=== PATIENT | female | born 2005 | race Caucasian/White ===

== ENCOUNTER 2024-01-23 10:46 | Inpatient (IN) ==
[2024-01-23 11:22] LABS: Hematocrit (blood only) 32.6 % (37.0-47.0); Hemoglobin 10.9 g/dl (12.0-16.0); Mean Corpuscular Hemoglobin 27.9 pg (25.0-34.0); Mean Corpuscular Hgb Conc 33.4 g/dL (32.0-36.0); Mean Corpuscular Volume 83.4 fL (80.0-100.0); Mean Platelet Volume 12.5 fL (9.4-12.4); Platelet Count 215 K/uL (130-400); RDW Coefficient of Variation 12.5 % (11.5-14.5); RDW Standard Deviation 38.1 fL (36.4-46.3); Red Blood Count 3.91 M/uL (4.20-5.40)
--- NOTE | 2024-01-23 11:27 | Emergency Department Note ---
Impression & Plan Acute GI bleeding, Anemia ED Provider Note NAME: BURKE FERNANDEZ AGE: 18 SEX: F : 2005 ARRIVES VIA: Ambulance INFORMANT: Patient, ED PROVIDER(S): George Angeles DO CHIEF COMPLAINT: GI bleeding HPI: The patient is a 18-year-old female who presented to the emergency department for an evaluation of GI bleeding. The patient started noticing abdominal discomfort including nausea and cramping. She started having problems with bloody stool but also had hematemesis. The patient denies having any similar history in the past. She denies having any fever. She denies having any abdominal pain at this time. The patient has no history or family history of inflammatory bowel disease. She presented to the emergency department because of dizziness upon standing and near syncope. ROS: See above HPI for pertinent positives & negatives. A total of 10 systems reviewed and were otherwise negative. PAST MEDICAL HISTORY: See Below PAST SURGICAL HISTORY: See Below FAMILY HISTORY: See Below SOCIAL HISTORY: See Below HOME MEDICATIONS: See Below ALLERGIES: See Below VITALS: See Below PHYSICAL EXAMINATION: GENERAL: Patient is awake alert in no acute distress patient is resting comfortably and showing no signs of anxiety EYES: The conjunctivae are clear. The pupils are round and reactive. EARS, NOSE, MOUTH AND THROAT: The nose is without any evidence of any deformity. NECK: The neck is nontender and supple. RESPIRATORY: Normal respiratory effort is noted there is no evidence of wheezing rhonchi or rales CARDIOVASCULAR: Tachycardic and regular heart sounds were noted to auscultation. There is no definite murmur. GASTROINTESTINAL: The abdomen is soft. Abdomen is nontender. Rectal exam revealed gross blood per rectum. PELVIS: The Pelvis is stable. No tenderness to palpation is noted. BACK: No midline tenderness or or step-off noted range of motion in flexion extension as well as rotation no signs of muscle spasm noted MUSCULOSKELETAL/EXTREMITIES: There is no evidence of gross deformity full range of motion is noted in the hips and shoulders. SKIN: There is no obvious evidence of any rash. There are no petechiae, pallor or cyanosis noted. NEUROLOGIC: Patient is awake alert and oriented x3 MEDICAL DECISION MAKING: The patient is a 18-year-old female who presented to the emergency department for an evaluation of upper GI bleeding. The patient had an episode of blood per rectum but also had hematemesis. The patient had heme positive stool in the emergency department with gross blood. I discussed the patient's laboratory and radiographic studies with her. Given her findings further radiographic studies were obtained including a CT of the abdomen and pelvis. This showed no acute process. The patient was tachycardic upon arrival in the emergency department. She was treated with IV fluids which improved her tachycardia. I discussed the patient's condition with the on-call lime burner. The [facility] was also notified about the patient. They will evaluate the patient in the emergency department. Triage Nursing notes reviewed. Prior medical records reviewed Vital Signs: reviewed and remarkable for tachycardia and hypotension. Differential diagnosis: Diverticulosis, AVM, coagulopathy, colitis, inflammatory bowel disease, malignancy, Madelaine-Medina tear, esophagitis, peptic ulcer disease, variceal bleed, gastritis, epistaxis, fissure, hemorrhoids, as well as other pathologies. ER treatment provided: See below Diagnostics interpreted by me: ECG: EKG was obtained in the emergency department. My interpretation is sinus tachycardia at 120 bpm. There was no ectopy. Nonspecific ST segment abnormalities were noted. No previous tracing was available. Cardiac Monitoring: An order was placed for continuous cardiac monitoring. The monitor shows a rate of 101 bpm with sinus tachycardia. Laboratory studies: As stated above and show below. Imaging studies: See below. Radiographic imaging was reviewed by myself Consultation(s): I discussed this case with Dr. Skinner who is on-call for gastroenterology. The [facility]ist, Dr. Garcia was notified about the patient. Past Med/Surg History Problem List (Updated 01/23/24 @ 15:00 by George Angeles DO) Anemia (Acute) Acute GI bleeding (Acute) Social History Smoking Status: Never smoker Preferred Language: Amharic Feels Safe at Home: Yes Allergies Allergies Allergy/AdvReac Type Severity Reaction Status Date / Time No Known Allergies Allergy Unverified 01/23/24 11:42 Home Meds Home Medications Medication Instructions Recorded Confirmed No Known Home Medications 01/23/24 01/23/24 Results & Data (ED) Vital Signs Vital Signs - 24 hr 01/23/24 10:42 01/23/24 11:05 01/23/24 11:38 Temperature 37.1 C Temperature Source Oral Pulse Rate - Lying 121 H Pulse Rate - Sitting 140 H Pulse Rate - Standing 161 H Pulse Rate 123 H Pulse Rate [Apical] Respiratory Rate 18 Respiratory Effort / Characteristics Non-Labored Spontaneous Respiratory Depth Normal Respiratory Pattern Regular Blood Pressure - Lying 97/59 L Blood Pressure - Sitting 106/71 Blood Pressure- Standing 94/69 L Blood Pressure 105/73 Blood Pressure [Right Arm] Blood Pressure Mean 83 Blood Pressure Mean [Right Arm] Pulse Oximetry 97 98 Oxygen Delivery Method Room Air Room Air Sepsis Recent Fever Within 48 Hours No Sepsis New/Unexplained Change in Mental Status N/A Sepsis Action Taken by Nursing No Action Required 01/23/24 12:00 01/23/24 12:09 01/23/24 14:00 Temperature Temperature Source Pulse Rate - Lying Pulse Rate - Sitting Pulse Rate - Standing Pulse Rate 106 H Pulse Rate [Apical] 107 H 100 H Respiratory Rate 18 18 Respiratory Effort / Characteristics Non-Labored Spontaneous Non-Labored Spontaneous Respiratory Depth Normal Normal Respiratory Pattern Regular Regular Blood Pressure - Lying Blood Pressure - Sitting Blood Pressure- Standing Blood Pressure Blood Pressure [Right Arm] 119/77 97/71 L Blood Pressure Mean Blood Pressure Mean [Right Arm] 91 79 Pulse Oximetry 97 98 Oxygen Delivery Method Room Air Room Air Sepsis Recent Fever Within 48 Hours Sepsis New/Unexplained Change in Mental Status Sepsis Action Taken by [facility] Medications Current Medication List: was personally reviewed by me Laboratory Data Attestation: I reviewed the patient's lab results. 01/23/24 14:36 01/23/24 11:01 Lab Results 01/23/24 01/23/24 01/23/24 Range/Units 11:01 11:31 13:16 WBC 13.00 H (4.8-10.8) K/ul RBC 3.91 L (4.20-5.40) M/uL Hgb 10.9 L (12.0-16.0) g/dl Hct 32.6 L (37.0-47.0) % MCV 83.4 (80.0-100.0) fL MCH 27.9 (25.0-34.0) pg MCHC 33.4 (32.0-36.0) g/dL RDW Std Deviation 38.1 (36.4-46.3) fL RDW Coeff of Miriam 12.5 (11.5-14.5) % Plt Count 215 (130-400) K/uL MPV 12.5 H (9.4-12.4) fL PT 11.1 (9.0-12.0) Seconds INR 1.0 (0.9-1.1) APTT 20 L (21-31) Seconds PTT Ratio 0.7 Sodium 138 (136-145) mmol/L Potassium 4.2 (3.5-5.1) mmol/L Chloride 107 (98-107) mmol/L Carbon Dioxide 22 (21-32) mmol/L Anion Gap 9 (3-11) BUN 28 H (6-23) mg/dl Creatinine 0.57 L (0.6-1.2) mg/dl Est Cr Clr Drug Dosing 149.4 ml/min eGFR 133.34 BUN/Creatinine Ratio 49.1 H (10-20) Glucose 124 H (70-99(Fasting)) mg/dl Calcium 8.7 (8.6-10.3) mg/dl Total Bilirubin 0.5 (0.2-1.0) mg/dl AST 13 (13-39) U/L ALT 8 (7-52) U/L Alkaline Phosphatase 55 (34-104) U/L Troponin I High Sens < 2.3 (0-14) pg/ml Total Protein 6.1 (6.0-8.3) gm/dl Albumin 4.1 (3.4-5.0) gm/dl Globulin 2.0 L (2.5-4.0) gm/dl Albumin/Globulin Ratio 2.0 (0.9-2) HCG, Qual Negative (Negative) Urine Color Yellow Urine Appearance Clear (Clear) Urine pH 7.5 (4.5-7.5) Ur Specific [place] 1.015 (1.000-1.030) Urine Protein Negative (Negative) Urine Glucose (UA) Negative (Negative) Urine Ketones Trace H (Negative) Urine Blood Negative (Negative) Urine Nitrite Negative (Negative) Urine Bilirubin Negative (Negative) Urine Urobilinogen Negative (Negative) Ur Leukocyte Esterase Negative (Negative) POC Stool Occult Blood (Negative) Blood Type O Negative Antibody Screen NEGATIVE 01/23/24 01/23/24 Range/Units 13:23 14:36 WBC (4.8-10.8) K/ul RBC (4.20-5.40) M/uL Hgb 9.8 L (12.0-16.0) g/dl Hct 28.8 L (37.0-47.0) % MCV (80.0-100.0) fL MCH (25.0-34.0) pg MCHC (32.0-36.0) g/dL RDW Std Deviation (36.4-46.3) fL RDW Coeff of Miriam (11.5-14.5) % Plt Count (130-400) K/uL MPV (9.4-12.4) fL PT (9.0-12.0) Seconds INR (0.9-1.1) APTT (21-31) Seconds PTT Ratio Sodium (136-145) mmol/L Potassium (3.5-5.1) mmol/L Chloride (98-107) mmol/L Carbon Dioxide (21-32) mmol/L Anion Gap (3-11) BUN (6-23) mg/dl Creatinine (0.6-1.2) mg/dl Est Cr Clr Drug Dosing ml/min eGFR BUN/Creatinine Ratio (10-20) Glucose (70-99(Fasting)) mg/dl Calcium (8.6-10.3) mg/dl Total Bilirubin (0.2-1.0) mg/dl AST (13-39) U/L ALT (7-52) U/L Alkaline Phosphatase (34-104) U/L Troponin I High Sens (0-14) pg/ml Total Protein (6.0-8.3) gm/dl Albumin (3.4-5.0) gm/dl Globulin (2.5-4.0) gm/dl Albumin/Globulin Ratio (0.9-2) HCG, Qual (Negative) Urine Color Urine Appearance (Clear) Urine pH (4.5-7.5) Ur Specific [place] (1.000-1.030) Urine Protein (Negative) Urine Glucose (UA) (Negative) Urine Ketones (Negative) Urine Blood (Negative) Urine Nitrite (Negative) Urine Bilirubin (Negative) Urine Urobilinogen (Negative) Ur Leukocyte Esterase (Negative) POC Stool Occult Blood Positive A (Negative) Blood Type Antibody Screen Administered Medications Discontinued Medications Sodium Chloride (Nss) 500 mls @ 999 mls/hr IV .Q31M ONE Stop: 01/23/24 11:53 Last Infusion: 01/23/24 12:15 Dose: Infused Documented By: Admin: 01/23/24 11:39 Dose: 999 mls/hr Documented By: KHAI Pantoprazole Sodium 40 mg/ (Syringe) 10 mls @ 5 mls/min IV NOW ONE Stop: 01/23/24 11:24 Last Admin: 01/23/24 11:49 Dose: 5 mls/min Documented By: KHAI Famotidine (Pepcid 20mg Iv Push) 20 mg in 5 mls @ 2.5 mls/min IV NOW STA Stop: 01/23/24 11:24 Last Admin: 01/23/24 11:35 Dose: 2.5 mls/min Documented By: KHAI Ioversol (Optiray 320 100ml) 94 ml IV ONCE ONE Stop: 01/23/24 13:28 Last Admin: 01/23/24 13:27 Dose: 94 ml Documented By: EDEL Ondansetron HCl (Ondansetron Inj 2 Mg/Ml 2 Ml Vial) 4 mg IV NOW STA Stop: 01/23/24 11:28 Last Admin: 01/23/24 11:41 Dose: 4 mg Documented By: KHAI Imaging Data Attestation: I personally reviewed and interpreted this imaging study as follows: My Impression: CT of the abdomen and pelvis was obtained in the emergency department. My interpretation is no free air or signs of bowel obstruction, final report below. Radiologist's Impression: Abdomen/Pelvis CT 01/23/24 11:[address] WITH IV AND ORAL CONTRAST CT DOSE: 734.68 mGy.cm HISTORY: Acute bloody stools with generalized abdominal pain UGIB TECHNIQUE: Multiaxial CT images of the abdomen and pelvis were performed following the IV administration of 94 cc of Optiray and oral contrast. A dose lowering technique was utilized adhering to the principles of ALARA. COMPARISON STUDY: None. FINDINGS: The lung bases are clear. The liver, spleen, gallbladder, pancreas, kidneys, and adrenal glands are within normal limits.. Normal appendix. No bowel wall thickening or obstruction. The pelvic organs are unremarkable with 1.7 cm dominant right ovarian follicle. Bones appear grossly intact. IMPRESSION: Unremarkable CT of the abdomen and pelvis. ACT 112: Negative or not required by law. The above report was generated using voice recognition software. It may contain grammatical, syntax or spelling errors. Electronically signed by: Hernando Benton M.D. 01/23/2024 2:20 PM Discharge Plan Visit Data Chief Complaint: GI Bleed Stated Complaint: GI BLEED ED Provider: George Angeles Discharge Problem: Acute GI bleeding, Anemia Patient Disposition: Being Evaluated by Hospitalist Forms Stand Alone Forms: [employer] [facility] [employer] Prescriptions Prescriptions: No Action No Known Home Medications Referrals Referrals: PCP,NO [Physician] - Discharge Problem: Anemia Qualifiers: Anemia type: unspecified type Qualified Code(s): D64.9 - Anemia, unspecified
[2024-01-23 11:29] LABS: Alanine Aminotransferase 8 U/L (7-52); Albumin Level 4.1 gm/dl (3.4-5.0); Alkaline Phosphatase 55 U/L (34-104); Anion Gap 9 (3-11); Aspartate Aminotransferase 13 U/L (13-39); BUN Creatinine Ratio 49.1 (10-20); Bilirubin,Total 0.5 mg/dl (0.2-1.0); Blood Urea Nitrogen 28 mg/dl (6-23); Calcium 8.7 mg/dl (8.6-10.3); Carbon Dioxide 22 mmol/L (21-32); Chloride 107 mmol/L (98-107); Creatinine Clr Calc Pharmacy 149.4 ml/min; Glucose 124 mg/dl (70-99(Fasting)); Potassium 4.2 mmol/L (3.5-5.1); Sodium 138 mmol/L (136-145); Total Protein 6.1 gm/dl (6.0-8.3)
[2024-01-23] MEDS: FAMOTIDINE 20MG IV PUSH 20 MG/5 ML SYR IV STA (11:35)
[2024-01-23 11:36] LABS: Troponin I High Sensitivity < 2.3 pg/ml (0-14)
[2024-01-23] MEDS: SODIUM CHLORIDE 0.9% 500 ML IV ONE (11:39)
[2024-01-23] MEDS: ONDANSETRON INJ 2 MG/ML 2 ML VIAL IV STA (11:41)
[2024-01-23 11:46] LABS: Partial Thromboplastin Ratio 0.7; Partial Thromboplastin Time 20 Seconds (21-31); Prothrombin Time 11.1 Seconds (9.0-12.0)
[2024-01-23] MEDS: PANTOprazole 40 MG in SYRINGE 0 ML IV ONE (11:49)
[2024-01-23 11:52] LABS: Pregnancy Test, Serum Negative (Negative)
--- NOTE | 2024-01-23 12:37 | Electrocardiogram Report ---
Test Reason : Blood Pressure : */* mmHG Vent. Rate : 120 BPM Atrial Rate : 120 BPM P-R Int : 120 ms QRS Dur : 84 ms QT Int : 292 ms P-R-T Axes : 60 61 6 degrees QTcB Int : 412 ms Sinus tachycardia Possible Left atrial enlargement Nonspecific T wave abnormality Abnormal ECG No previous ECGs available Confirmed by George Peña ([id number]) on 01/23/2024 12:36:30 PM Referred By: Confirmed By: George Peña
[2024-01-23 13:26] LABS: Appearance Urine Clear (Clear); Bilirubin Urine Negative (Negative); Blood Urine Negative (Negative); Color Urine Yellow; Glucose Urine UA Negative (Negative); Ketones Urine Trace (Negative); Leukocyte Esterase Urine Negative (Negative); Nitrite Urine Negative (Negative); Protein Urine Negative (Negative); Specific Gravity Urine 1.015 (1.000-1.030); Urobilinogen Urine Negative (Negative); pH Urine 7.5 (4.5-7.5)
[2024-01-23] MEDS: OPTIRAY 320 100ml IV ONE (13:27)
--- NOTE | 2024-01-23 14:23 | CT Scan Report ---
ABDOMEN AND PELVIS CT WITH IV AND ORAL CONTRAST CT DOSE: 734.68 mGy.cm HISTORY: Acute bloody stools with generalized abdominal pain UGIB TECHNIQUE: Multiaxial CT images of the abdomen and pelvis were performed following the IV administrat ion of 94 cc of Optiray and oral contrast. A dose lowering technique was utilized adhering to the pr inciples of NORBERTO. COMPARISON STUDY: None. FINDINGS: The lung bases are clear. The liver, spleen, gallbladder, pancreas, kidneys, and adrenal gl ands are within normal limits.. Normal appendix. No bowel wall thickening or obstruction. The pelvic organs are unremarkable with 1.7 cm dominant right ovarian follicle. Bones appear grossly intact. IMPRESSION: Unremarkable CT of the abdomen and pelvis. ACT 112: Negative or not required by law. The above report was generated using voice recognition software. It may contain grammatical, syntax o r spelling errors. Electronically signed by: Hernando Benton M.D. 01/23/2024 2:20 PM
[2024-01-23 14:52] LABS: Hematocrit (blood only) 28.8 % (37.0-47.0); Hemoglobin 9.8 g/dl (12.0-16.0)
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
[2024-01-23] MEDS: ONDANSETRON INJ 2 MG/ML 2 ML VIAL IV PRN (18:09)
[2024-01-23] MEDS: PANTOprazole 40 MG in SYRINGE 0 ML IV SCH (21:16)
[2024-01-23] MEDS: diphenhydrAMINE Capsule 25 MG CAP PO ONE (21:27)
[2024-01-23] MEDS: ACETAMINOPHEN 325 MG TAB PO PRN (21:27)
[2024-01-23 21:44] LABS: Hematocrit (blood only) 29.1 % (37.0-47.0); Hemoglobin 10.1 g/dl (12.0-16.0)
[2024-01-24 06:14] LABS: Basophils # (auto) 0.06 K/uL (0.00-0.20); Basophils % (auto) 0.8 %; Eosinophils # (auto) 0.06 K/uL (0.00-0.50); Eosinophils % (auto) 0.8 %; Hematocrit (blood only) 27.3 % (37.0-47.0); Hemoglobin 9.3 g/dl (12.0-16.0); Immature Granulocytes # (auto) 0.02 K/uL (0.01-0.20); Immature Granulocytes % (auto) 0.3 %; Lymphocytes # (auto) 3.54 K/uL (1.20-3.40); Lymphocytes % (auto) 47.9 %; Mean Corpuscular Hemoglobin 28.4 pg (25.0-34.0); Mean Corpuscular Hgb Conc 34.1 g/dL (32.0-36.0); Mean Corpuscular Volume 83.2 fL (80.0-100.0); Mean Platelet Volume 12.5 fL (9.4-12.4); Monocytes # (auto) 0.53 K/uL (0.11-0.59); Monocytes % (auto) 7.2 %; Neutrophils # (auto) 3.18 K/uL (1.40-6.50); Platelet Count 183 K/uL (130-400); RDW Coefficient of Variation 12.9 % (11.5-14.5); RDW Standard Deviation 38.8 fL (36.4-46.3); Red Blood Count 3.28 M/uL (4.20-5.40); White Blood Count 7.39 K/ul (4.8-10.8)
[2024-01-24 06:32] LABS: Magnesium 1.9 mg/dl (1.7-2.4)
[2024-01-24 06:47] LABS: Thyroid Stimulating Hormone 1.256 uIu/ml (0.300-4.500)
--- NOTE | 2024-01-24 07:13 | Hospitalist Progress Note ---
Date of Service January 24, 2024 Assessment & Plan (1) Acute GI bleeding: Plan: Patient presented with hematemesis and melena that started 01/22: #Hematemesis, Melena: -Presenting symptoms suggestive of likely upper GI bleed -hemodynamically stable -POC stool occult blood positive -GI consulted, patient s/p EGD 01/23, significant for: - non-bleeding gastric ulcer - erosive gastropathy with active bleeding - hemostasis achieved with bipolar cautery. -Resume clear liquid diet post-procedure -Continue IV Protonix twice daily #Anemia -hemoglobin 10.9 on admission --> 9.3 this AM -RBC 3.28 L, Hgb 9.3 low Hit 27.3% -Will consider blood transfusion if hemoglobin drops below 8 g/dL -AM labs VTE ppx: SCDs Diet: clear liquids Code status: full code Dispo: MedSurg with telemetry Plan Admission and Anticipated Discharge Date Admission Date: January 23, 2024 Supervising Physician Co-Signing Physician Notes Attending Physician Supervision Note: I independently interviewed and examined the patient and verified the white history and physical, reviewed labs and image studies and agree with findings and care plan noted above. Seen this am. Was awaiting endoscopy. No bloating or nausea. vitals noted nad heent nc at mmm breathing unlabored no accessory muscles good effort skin no rashes no pallor or icterus neuro no focal deficits. Hematemesis Acute blood loss anemia -EGD done - non-bleeding gastric ulcer and Erosive gastropathy with active bleeding treated with cautery. -Continue protonix drip. -Clear liquid diet. -Monitor h/h Excess bloating and diarrhea - Has had evaluated and treatment with Xifaxan as outpatient. -Will need GI follow up on discharge. Subjective 18 yo F with PMH of IBS presents for hematemesis and hematochezia x 1 day. Patient is a [employer] student living on campus. She reports that she had stomach cramping and bloating all day on Wednesday and then felt nauseous and lightheaded overnight. She tried to go to the bathroom multiple times, but could not make it due to lightheadedness. At 7:30am she made it to the bathroom and noticed red blood in her stool. She fell asleep for about 15 min and then woke up vomiting blood. She then called for EMS. She notes a history of GI issues for a couple years. She sees a kitchen work supervisor back home for bloating that is mostly related to food intolerance. She has done many different tests- blood, stool, and MRI and all were negative. She was diagnosed with IBS and started on Xifaxin. The Xifaxin alleviated the bloating but she then developed diarrhea and nausea. She was recommended by GI to have an endoscopy or colonoscopy, but she was planning to do over winter. She also notes that a few times over the summer she felt lightheaded, but that resolved 2-3 months ago. She denies any history of acid reflux, ibuprofen use, alcohol use, smoking, or significant stressors. Denies black tarry stools at home, but notes one last night in the hospital. Notes a family history of IBS in both of her grandmothers and diverticulitis in one of her grandmothers. No other relevant family history. Review of Systems Review of Systems: Constitutional: No fever, No chills, No fatigue. Respiratory: No shortness of breath, No cough, No wheezing. Cardiovascular: + lightheadedness/presyncope, No chest pain, No palpitations. Gastrointestinal: + nausea, + vomiting, + abdominal pain, No diarrhea, No constipation, No heartburn. Musculoskeletal: No back pain, No neck pain, No joint pain, No muscle pain, No decreased range of motion, No trauma. Skin: No rash, No pruritus, No breakdown. Neurologic: No abnormal balance, No numbness, No tingling, No headache. Physical Exam Physical Exam: General: Alert and oriented, No acute distress HEENT: Normocephalic, no JVD, gross hearing intact, gross vision intact Cardiovascular: Normal rate, Regular rhythm, No murmur, No gallop Respiratory: Lungs are clear to auscultation, Respirations are non-labored, Breath sounds are equal Gastrointestinal: Soft, Non-tender, Non-distended, Normal bowel sounds Musculoskeletal: Normal range of motion, normal strength. Neurologic: Normal sensory, Normal motor function, CN II-XII grossly intact Integumentary: Warm, Dry, [place] Psych: Mood-affect congruence. Reports no SI/HI. Speech is of normal pace and content Results & Data Results & Data Vital Signs (Past 12 Hours) Vital Signs Temp Pulse Pulse Resp BP Pulse Ox O2 Del Method 01/24/24 04:09 36.7 C 73 20 104/66 99 Room Air 01/24/24 00:03 36.8 C 84 20 102/67 99 Room Air 01/23/24 22:07 85 01/23/24 20:05 36.7 C 91 H 20 98/66 L 100 Room Air Resident Activity Tracking Resident Involvement: Resident Care Provided Care Provided: Adult Hospital Medicine
[2024-01-24] MEDS: SODIUM CHLORIDE 0.9% 500 ML IV SCH ×2 (08:10→15:57)
--- NOTE | 2024-01-24 13:47 | Anesthesiology Consultation ---
Date of Service January 24, 2024 Assessment & Plan Chart Review Chart Review: Acceptable Risk for Surgery and Patient NOT seen in Pre Admission Testing History Surgery Operation Date: 01/24/24 16:30 Proposed Procedures p Esophagogastroduodenoscopy Dr. Susanne Skinner Jr, MD Height/Weight Height: 5 ft 4 in Weight: 67.2 kg Allergies Allergy/AdvReac Type Severity Reaction Status Date / Time No Known Allergies Allergy Unverified 01/23/24 11:42 Medications Home Medications Medication Instructions Recorded Confirmed Last Taken No Known Home Medications 01/23/24 01/23/24 Unknown Active Medications Generic Name Dose Route Start Last Admin Trade Name Freq PRN Reason Stop Dose Admin Acetaminophen 650 mg 01/23/24 15:23 01/23/24 21:27 Acetaminophen 325 Mg Tab PO 02/22/24 15:22 650 mg Q4H PRN Administration pain/fever Pantoprazole Sodium 40 mg/ 10 mls @ 5 mls/min 01/23/24 21:00 01/24/24 08:10 Syringe IV 02/22/24 20:59 5 mls/min BID HODA Administration Sodium Chloride 500 mls @ 15 mls/hr 01/24/24 07:30 01/24/24 13:42 Nss IV 01/25/24 07:29 Not Given .Q24H HODA Ondansetron HCl 4 mg 01/23/24 15:23 01/23/24 18:09 Ondansetron Inj 2 Mg/Ml 2 Ml Vial IV 02/22/24 15:22 4 mg Q6H PRN Administration Nausea NPO Date Last Intake of Fluids: 01/24/24 Time Last Intake of Fluids: 03:00 Date Last Intake of Solids: 01/22/24 Time Last Intake of Solids: 21:00 Social History Smoking Status: Never smoker Do You Dip or Chew Tobacco: No Hx Alcohol Use: No Hx Substance Use: No Physical Exam Vital Signs Last Vital Signs Temp 36.8 C 01/24/24 13:39 Pulse 92 H 01/24/24 13:39 Resp 16 01/24/24 13:39 BP 109/71 01/24/24 13:39 Pulse Ox 100 01/24/24 13:39 O2 Del Method Room Air 01/24/24 13:39 Testing Laboratory Results 01/24/24 05:27 01/23/24 11:01 PT 11.1 Seconds (9.0-12.0) 01/23/24 11:01 INR 1.0 (0.9-1.1) 01/23/24 11:01 APTT 20 Seconds (21-31) L 01/23/24 11:01 Urine Color Yellow 01/23/24 13:16 Urine Appearance Clear (Clear) 01/23/24 13:16 Urine pH 7.5 (4.5-7.5) 01/23/24 13:16 Ur Specific [place] 1.015 (1.000-1.030) 01/23/24 13:16 Urine Protein Negative (Negative) 01/23/24 13:16 Urine Glucose (UA) Negative (Negative) 01/23/24 13:16 Urine Ketones Trace (Negative) H 01/23/24 13:16 Urine Nitrite Negative (Negative) 01/23/24 13:16 Ur Leukocyte Esterase Negative (Negative) 01/23/24 13:16 Blood Type O Negative 01/23/24 11:31 Antibody Screen NEGATIVE 01/23/24 11:31
--- NOTE | 2024-01-24 14:12 | Gastrointestinal Consultation ---
Date of Consultation January 24, 2024 Assessment & Plan (1) Acute GI bleeding: Pleasant young woman with hematemesis and hematochezia. She has anemia but she says she is always "a little anemic". It is possible this is a GI bug but the hematemesis doesn't fit without history that fits Madelaine Medina tear. My suspicion is she took Midol with ibuprofen and may have GI irritation related to that. We plan EGD. Procedure and risks discussed. She agrees. History of Present Illness Reason for Consultation: hematemesis Attending Physician: Ellen Campbell MD History of Present Illness 18 year old female who on Wednesday was feeling a little weak and then Wednesday became very lightheaded and dizzy. Later on Wednesday morning she developed bloody diarrhea and then vomited blood with clots. She does not really have abdominal pain. She denies NSAID use of abuse. She does have chronic IBS symptoms and has seen GI in [place]. Allergies Allergy/AdvReac Type Severity Reaction Status Date / Time No Known Allergies Allergy Unverified 01/23/24 11:42 Home Medications Medication Instructions Recorded Confirmed Type No Known Home Medications 01/23/24 01/23/24 History Patient History Social History Smoking Status: Never smoker Second Hand Exposure: No; Do You Dip or Chew Tobacco: No; Tobacco Cessation Education Requested by Patient: No Hx Alcohol Use: No Hx Substance Use: No Preferred Language: Korean Communication Ability: Effective Pulp Plant Supervisor Required: No Beliefs That Will Affect Care: None Current Living Situation: Other Current Living Situation Comment: lives in college dorm Other Information That Helps Us Care for You: No Feels Safe at Home: Yes Safety Concerns: Feels Safe At This Time Assistive Devices: None Review of Systems Review of Systems: All systems reviewed & are unremarkable except as noted in HPI & below Physical Exam Constitutional: WD/WN, vitals as above Neck: trachea midline, no thyromegaly Respiratory: normal respiratory effort, lungs clear to auscultation Cardiovascular: RRR, no murmur, no edema Gastrointestinal (Abdomen): normal bowel sounds, soft, nontender, no hepatosplenomegaly Results & Data Vital Signs (Past 12 Hours) Vital Signs Temp Pulse Pulse Pulse Resp BP Pulse Ox 01/24/24 13:39 36.8 C 92 H 16 109/71 100 01/24/24 11:52 36.6 C 68 16 91/50 L 98 01/24/24 07:46 37.1 C 80 16 107/62 99 01/24/24 07:00 72 01/24/24 04:09 36.7 C 73 20 104/66 99 O2 Del Method 01/24/24 13:39 Room Air 01/24/24 11:52 Room Air 01/24/24 07:46 Room Air 01/24/24 07:00 01/24/24 04:09 Room Air Laboratory Results 01/24/24 01/23/24 01/23/24 Range/Units 05:27 21:12 14:36 WBC 7.39 (4.8-10.8) K/ul RBC 3.28 L (4.20-5.40) M/uL Hgb 9.3 L 10.1 L 9.8 L (12.0-16.0) g/dl Hct 27.3 L 29.1 L 28.8 L (37.0-47.0) % MCV 83.2 (80.0-100.0) fL MCH 28.4 (25.0-34.0) pg MCHC 34.1 (32.0-36.0) g/dL RDW Std Deviation 38.8 (36.4-46.3) fL RDW Coeff of Miriam 12.9 (11.5-14.5) % Plt Count 183 (130-400) K/uL MPV 12.5 H (9.4-12.4) fL Immature Gran % (Auto) 0.3 % Neut % (Auto) 43.0 % Lymph % (Auto) 47.9 % Leon % (Auto) 7.2 % Eos % (Auto) 0.8 % Baso % (Auto) 0.8 % Neut # (Auto) 3.18 (1.40-6.50) K/uL Lymph # (Auto) 3.54 H (1.20-3.40) K/uL Leon # (Auto) 0.53 (0.11-0.59) K/uL Eos # (Auto) 0.06 (0.00-0.50) K/uL Baso # (Auto) 0.06 (0.00-0.20) K/uL Immature Gran # (Auto) 0.02 (0.01-0.20) K/uL Magnesium 1.9 (1.7-2.4) mg/dl TSH 1.256 (0.300-4.500) uIu/ml Diagnostic Findings Abdomen/Pelvis CT 01/23/24 11:[address] WITH IV AND ORAL CONTRAST CT DOSE: 734.68 mGy.cm HISTORY: Acute bloody stools with generalized abdominal pain UGIB TECHNIQUE: Multiaxial CT images of the abdomen and pelvis were performed following the IV administration of 94 cc of Optiray and oral contrast. A dose lowering technique was utilized adhering to the principles of ALARA. COMPARISON STUDY: None. FINDINGS: The lung bases are clear. The liver, spleen, gallbladder, pancreas, kidneys, and adrenal glands are within normal limits.. Normal appendix. No bowel wall thickening or obstruction. The pelvic organs are unremarkable with 1.7 cm dominant right ovarian follicle. Bones appear grossly intact. IMPRESSION: Unremarkable CT of the abdomen and pelvis. ACT 112: Negative or not required by law. The above report was generated using voice recognition software. It may contain grammatical, syntax or spelling errors. Electronically signed by: Hernando Benton M.D. 01/23/2024 2:20 PM
--- NOTE | 2024-01-24 14:43 | Anesthesiology Progress Note ---
Date of Service January 24, 2024 Anesthesia Post Procedure Vital Signs Vital Signs: Temp Pulse Pulse Pulse Resp BP Pulse Ox 01/24/24 13:39 36.8 C 92 H 16 109/71 100 01/24/24 11:52 36.6 C 68 16 91/50 L 98 01/24/24 07:46 37.1 C 80 16 107/62 99 01/24/24 07:00 72 01/24/24 04:09 36.7 C 73 20 104/66 99 01/24/24 00:03 36.8 C 84 20 102/67 99 01/23/24 22:07 85 01/23/24 20:05 36.7 C 91 H 20 98/66 L 100 01/23/24 17:08 37.3 C 115 H 18 130/77 95 01/23/24 16:27 37.3 C 115 H 18 130/77 95 01/23/24 16:00 96 H 18 109/69 99 01/23/24 15:00 103 H 18 103/56 L 95 O2 Del Method 01/24/24 13:39 Room Air 01/24/24 11:52 Room Air 01/24/24 07:46 Room Air 01/24/24 07:00 01/24/24 04:09 Room Air 01/24/24 00:03 Room Air 01/23/24 22:07 01/23/24 20:05 Room Air 01/23/24 17:08 Room Air 01/23/24 16:27 Room Air 01/23/24 16:00 Room Air 01/23/24 15:00 Room Air Transfer of Care Handoff Completed per policy Notes Mental Status: alert / awake / arousable and participated in evaluation Patient Amnestic to Procedure: Yes Nausea / Vomiting: adequately controlled Pain: adequately controlled Airway Patency, RR, SpO2: stable & adequate BP & HR: stable & adequate Hydration State: stable & adequate Anesthetic Complications: no major complications apparent and Pt Satisfied with anesthetic care
--- NOTE | 2024-01-24 14:50 | GI REPORT ---
[facility] Patient: BURKE FERNANDEZ : 2005 Sex at : Female Age: 18 Years Procedure: Upper GI endoscopy Date: 01/24/2024 Attending Physician: Suleiman Skinner MD Referring MD: Referred Self Indications: - Hematemesis Medications: - General Anesthesia - See the Anesthesia note for documentation of the administered medications Complications: - No immediate complications. Estimated Blood Loss: - Estimated blood loss was minimal. Procedure: - ASA Grade Assessment: I - A normal, healthy patient. - The egd scope was introduced through the mouth and advanced to the second part of the duodenum. - The upper GI endoscopy was accomplished without difficulty. - The patient tolerated the procedure well. Findings: - The examined esophagus was normal. - One non-bleeding superficial gastric ulcer with no stigmata of bleeding was found in the gastric body. The lesion was 4 mm in largest dimension. - Multiple dispersed small erosions with one that started with active bleeding found in the gastric body. Coagulation for hemostasis using bipolar probe was successful. It was difficult to discern if this was an erosion that bled or a Dieulafoy's lesion. No active bleeding seen after treatment - The examined duodenum was normal. Impression: - Normal esophagus. - Non-bleeding gastric ulcer with no stigmata of bleeding. - Erosive gastropathy with active bleeding. Treated with bipolar cautery. - Normal examined duodenum. - No specimens collected. Recommendation: - Return patient to hospital [facility] for ongoing care. - Clear liquid diet today. - Continue present medications. Procedure Code(s): - 02897, Esophagogastroduodenoscopy, flexible, transoral; with control of bleeding, any method Diagnosis Code(s): - K92.0, Hematemesis - K25.9, Gastric ulcer, unspecified as acute or chronic, without hemorrhage or perforation - K92.2, Gastrointestinal hemorrhage, unspecified CPT(R) - 2023 copyright [employer]. All Rights Reserved. The CPT codes, CCI edits and ICD codes generated are intended as suggestions and were generated based on input data. These codes are preliminary and upon general internist review may be revised to meet current compliance and payer requirements. The provider is responsible for the final determination of appropriate codes, and modifiers. Dr. Suleiman Skinner MD This document has been electronically signed. Note Initiated:01/24/2024 Note Completed:01/24/2024 2:50 PM \\[id number]
[2024-01-24] MEDS: LIDOCAINE 2% 2 ML VIAL/AMP(20MG/ML) INFIL ONE (16:38)
[2024-01-24] MEDS: PROPOFOL IV EMULSION 10 MG/ML 20 ML VIAL IV ONE (16:38)
[2024-01-24] MEDS: diphenhydrAMINE Capsule 25 MG CAP PO PRN (22:31)
[2024-01-25 06:23] LABS: Hematocrit (blood only) 24.3 % (37.0-47.0); Hemoglobin 8.4 g/dl (12.0-16.0); Mean Corpuscular Hemoglobin 28.6 pg (25.0-34.0); Mean Corpuscular Hgb Conc 34.6 g/dL (32.0-36.0); Mean Corpuscular Volume 82.7 fL (80.0-100.0); Mean Platelet Volume 12.5 fL (9.4-12.4); Platelet Count 155 K/uL (130-400); RDW Coefficient of Variation 12.8 % (11.5-14.5); RDW Standard Deviation 38.5 fL (36.4-46.3); Red Blood Count 2.94 M/uL (4.20-5.40); White Blood Count 6.09 K/ul (4.8-10.8)
[2024-01-25 06:38] LABS: BUN Creatinine Ratio 10.6 (10-20); Calcium 8.5 mg/dl (8.6-10.3); Creatinine Clr Calc Pharmacy 128.1 ml/min; Potassium 3.8 mmol/L (3.5-5.1)
--- NOTE | 2024-01-25 06:57 | Hospitalist Progress Note ---
Date of Service January 25, 2024 Assessment & Plan (1) Acute GI bleeding: Plan: Patient presented with hematemesis and melena that started 01/22: #Hematemesis, Melena: -Presenting symptoms suggestive of likely upper GI bleed -hemodynamically stable -POC stool occult blood positive -GI consulted, patient s/p EGD 01/23, significant for: - non-bleeding gastric ulcer - 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 - awaiting final recommendations from GI -Resume clear liquid diet post-procedure -Continue IV Protonix twice daily #Anemia -hemoglobin 10.9 on admission --> 8.4 this AM -RBC 2.94, Hgb 8.4, Hct 24.3% -Will consider blood transfusion if hemoglobin drops below 8 g/dL. -AM labs -Iron supplementation plan will depend on GI final recommendations. If patient has erosive gastritis rather than dieulafoy's lesion, might avoid iron supplementation. VTE ppx: SCDs Diet: clear liquids Code status: full code Dispo: MedSurg with telemetry Plan Admission and Anticipated Discharge Date Admission Date: January 23, 2024 Supervising Physician Co-Signing Physician Notes Attending Physician Supervision Note: I independently interviewed and examined the patient and verified the white history and physical, reviewed labs and image studies and agree with findings and care plan noted above. Seen this am. Was awaiting endoscopy. No bloating or nausea. vitals noted nad heent nc at mmm breathing unlabored no accessory muscles good effort skin no rashes no pallor or icterus neuro no focal deficits. Hematemesis Acute blood loss anemia -EGD done - non-bleeding gastric ulcer and Erosive gastropathy with active bleeding treated with cautery. -Continue protonix drip. -Clear liquid diet. -Monitor h/h Excess bloating and diarrhea - Has had evaluated and treatment with Xifaxan as outpatient. -Will need GI follow up on discharge. Subjective 18 yo F with PMH of IBS presents for hematemesis and hematochezia x 1 day. Doing well this AM. Resting comfortably and denies any pain or discomfort. Denies any vomiting overnight but notes one black bowel movement. Asks if the hgb levels have improved. Review of Systems Review of Systems: Constitutional: No fever, No chills, No fatigue. Respiratory: No shortness of breath, No cough, No wheezing. Cardiovascular: No lightheadedness/presyncope, No chest pain, No palpitations. Gastrointestinal: No nausea, No vomiting, No abdominal pain, No diarrhea, No constipation, No heartburn. Musculoskeletal: No back pain, No neck pain, No joint pain, No muscle pain, No decreased range of motion, No trauma. Skin: No rash, No pruritus, No breakdown. Neurologic: No abnormal balance, No numbness, No tingling, No headache. Physical Exam Physical Exam: General: Alert and oriented, No acute distress HEENT: Normocephalic, no JVD, gross hearing intact, gross vision intact Cardiovascular: Normal rate, Regular rhythm, No murmur, No gallop Respiratory: Lungs are clear to auscultation, Respirations are non-labored, Breath sounds are equal Gastrointestinal: Soft, Non-tender, Non-distended, Normal bowel sounds Musculoskeletal: Normal range of motion, normal strength. Neurologic: Normal sensory, Normal motor function, CN II-XII grossly intact Integumentary: Warm, Dry, [place] Psych: Mood-affect congruence. Reports no SI/HI. Speech is of normal pace and content Results & Data Results & Data Vital Signs (Past 12 Hours) Vital Signs Temp Pulse Pulse Resp BP Pulse Ox O2 Del Method 01/25/24 04:00 36.7 C 77 18 101/63 98 Room Air 01/24/24 22:43 37.0 C 86 18 99/62 L 99 Room Air 01/24/24 21:55 81 01/24/24 19:00 37.0 C 82 18 99/65 L 99 Room Air
--- NOTE | 2024-01-25 12:37 | Gastroenterology Progress Note ---
Date of Service January 25, 2024 Assessment & Plan (1) Acute GI bleeding: Plan: Doing well. Okay with me to go home on PPI. I will see her in office to follow up on this issue as well as to address her IBS. If hemoglobin is good at noon she can leave. I answered all of her questions and her parents questions as well. Admission and Anticipated Discharge Date Admission Date: January 23, 2024 Subjective Feeling well. Hungry, wants to go home. Had a very small black stool last night but nothing else. Hemoglobin drifted down to 8.4 this morning. Has a lot of questions for me today Physical Exam Physical Exam: She looks well Constitutional: WD/WN, vitals as above Results & Data Vital Signs (Past 12 Hours) Vital Signs Temp Pulse Pulse Resp BP Pulse Ox O2 Del Method 01/25/24 10:35 36.5 C 89 12 110/70 100 Room Air 01/25/24 07:34 36.5 C 76 12 102/69 98 Room Air 01/25/24 07:33 72 01/25/24 04:00 36.7 C 77 18 101/63 98 Room Air
[2024-01-25 12:50] LABS: Hematocrit (blood only) 25.5 % (37.0-47.0); Hemoglobin 8.7 g/dl (12.0-16.0)
--- NOTE | 2024-01-25 17:31 | Discharge Summary ---
Date of Service January 25, 2024 Admission HPI Per Admitting Provider Patient is a 18-year-old female coming from [facility]. She presents today for a GI bleed. She stated that she frequently has stomach pain, she had pain yesterday but did not think anything of it. She was constipated for a few days before and tried a new restaurant yesterday. She then stated at 2 AM she felt nauseous and lightheaded she tried to keep sleeping but woke up frequently throughout the night with nausea. She tried going to the bathroom multiple times but felt like she was going to pass out. At around 5 AM she had a bowel movement and said that she noticed blood in it, she does not know what color it was because she felt too lightheaded and just wanted to go lay down. At 9 AM she had an episode of vomiting and noted blood in it. She has never had an episode like this in the past. She denies history of ulcerative colitis, Crohn's, recent NSAID use. She does state that she has heavy periods and her last menstrual period was last week. She has followed with GI in [place] since 2019. She has frequent bloating and abdominal pain. She stated that she took a course of antibiotics in August that seemed to make things worse. She thought her abdominal pain would get better after moving into college, she stated that it did. She has a strict diet but nothing seems to help. She stated that she currently has a headache, feels bloated. Her abdominal pain subsided yesterday. Patient denies fever, chills, current dizziness, current lightheadedness, sore throat, cough, chest pain, current abdominal pain, nausea, numbness, tingling. She does not take any medications at home. She does not smoke tobacco or drink alcohol. Admission Exam Per Admitting Provider The patient is awake, alert and oriented 3, well developed and well nourished, normocephalic and atraumatic, in no acute distress. Non-toxic appearing. HEENT- EOMI, mucous membranes moist. Hearing grossly intact. Heart-normal S1 and S2. No murmurs, rubs or gallops. Lungs-clear bilaterally, no respiratory distress, no accessory muscle use. Abdomen-normal bowel sounds and soft. No ascites noted. Non-tender. Extremities- no clubbing, cyanosis, or edema. Rheumatologic-normal range of motion. Principal Diagnosis Upper GI bleed Discharge Exam Constitutional WD/WN, vitals as above Respiratory normal respiratory effort, lungs clear to auscultation Cardiovascular RRR, no murmur, no edema Gastrointestinal (Abdomen) normal bowel sounds, soft, nontender, no hepatosplenomegaly Skin no rashes, warm and dry Psychiatric A+Ox3, euthymic affect Discharge Data Allergies Allergy/AdvReac Type Severity Reaction Status Date / Time No Known Allergies Allergy Unverified 01/23/24 11:42 Consultations 01/23/24 14:59 ED Decision to Admit Stat 01/23/24 15:22 Consult Gastroenterology Routine Procedures Performed Operation Date: 01/24/24 16:30 Actual Procedures p EGD Hemostasis - Suleiman Skinner Jr, MD Ordered Studies 01/23/24 11:23 CT Abd and Pelvis [CT abd pelvis oral and IV con] Stat Hospital Course (1) Acute GI bleeding: Patient presented with hematemesis and melena that started 01/22: #Hematemesis, Melena in the setting of acute upper GI bleed: -POC stool occult blood positive -GI consulted, patient s/p EGD 01/23, significant for: - non-bleeding gastric ulcer - 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 -Discharged on Protonix 40mg PO BID - patient to follow up with Dr. Skinner in outpatient setting for ongoing management of GI issues #Anemia -hemoglobin 10.9 on admission --> 8.7 at time of discharge -Outpatient PCP follow up scheduled for 01/27 - recommend repeat CBC to ensure resolution of blood loss anemia #IBS -Outpatient follow up. Plan Total Time Total Time Spent Total Time Spent (In Minutes): see attending attestation Discharge Plan Discharge Items Patient Disposition: Home - Self-Care Reason For Visit: GIB Discharge Diagnosis: upper GI bleed Activity: As commented below Activity Comment: activity progression as tolerated Non-emergency contact: Primary Care Provider and Architectural Associate Call non-emergency contact if: you have any medication questions and your sym ptoms worsen Follow-up/Referrals: [facility] [Primary Care Provider] - Suleiman Skinner Jr, MD [Physician] - Diet: Regular Addtl Attending Provider Instructions: You were admitted due to an upper GI bleed. On upper endoscopy, our GI team identified and cauterized a bleeding lesion. While unclear exactly what the trigger was for this bleed, we recommend continuing the following medication following discharge to reduce the risk of recurrence or progression: - Pantoprazole: Please take one 40mg tab twice daily. Follow up with Dr. Skinner as recommended; he can help determine the total duration of treatment. Because of the blood loss associated with this upper GI bleed, your anemia has become more pronounced. We recommend having labs drawn at your appointment Wednesday. We got you an appointment with [facility] at 10:25 on Saturday 01/27. This appointment is with Dr. Sheila Palacio. The address for the office is [address] [place] [address]. Please call [phone] if you need to change the appointment. Be sure to bring your insurance card with you. Pending Studies at Discharge: No Stand-Alone Forms: My [employer], Smoking Cessation Medications and DC Order Prescriptions: New pantoprazole 40 mg tablet,delayed release (DR/EC) 40 mg PO BID 30 Days Qty: 60 0RF Discharge Orders: Discharge Order (Routine); Ordered 01/25/24 Ordered By: Nilam Fam Admission Data Admit Date/Time: 01/23/24 15:24 Attending Provider: Ellen Campbell Admit Provider: Rohan Garcia Primary Care Provider: [facility] Other Providers: Rohan Garcia; Suleiman Skinner Jr Other Interventions: Discharge Summary Assessment (RN) Last Done: 01/25/24 14:17 Supervising Physician Co-Signing Physician Notes Attending Physician Supervision Note: I independently interviewed and examined the patient and verified the white history and physical, reviewed labs and image studies and agree with findings and care plan noted above. Resident Activity Tracking Resident Involvement: Resident Care Provided Care Provided: Adult Hospital [facility]
[2024-01-25] MEDS ORDERED: PANTOprazole 40 MG in SYRINGE BID IV SCH (21:00)
== END 2024-01-25 15:52 | disposition home or self-care (01) | DRG 378 ==
LOC: ED 10:46 → 2N 15:24 → SUATTDRO 15:24 → 2N 16:12